=== PATIENT | female | born 1990 | race Caucasian/White ===

== ENCOUNTER 2016-08-16 16:05 | Emergency (ER) | payer MEDICAID ==
[2016-08-16 16:30] VITALS: BP 128/76
--- OUTSIDE RECORDS SUMMARY | 2016-08-16 17:17 | XMS REPORT | Continuity of Care Document ---
:1990 Author Organization [facility] ([facility]) Address [place] [address] Phone [phone] Care Team Providers Name Role Phone Narciso Phillips Primary Care Provider [phone] Source Comments This disclosure is being made pursuant to the Care Everywhere program, applicable federal and state laws, and may not contain all informaitonavailable regarding this patient.[facility] ([facility]) Active Allergies and Adverse Reactions Allergen Noted Date Severity Reactions Comments Guaifenesin 08/23/2013 Rash Penicillins 08/09/2013 Urticaria (Hives) Current Medications Prescription Sig. Disp. Refills Start Date End Date Status nicotine 7 mg/24 hr apply 1 Patch on the 28 Patch 3 08/09/2013 Active patch skin daily. Indications: SMOKING CESSATION Take 1 Tab by mouth Active multivitamin with daily. Indications: minerals 28-0.8 mg per tablet ranitidine 150 mg Take 150 mg by mouth Active tablet 2 times daily. Indications: HEARTBURN insulin lispro inject 4 Units 10 mL 11 09/08/2013 Active (HumaLOG) 100 subcutaneously 3 unit/mL injection times daily before vial meals. Indications: TYPE 1 DIABETES MELLITUS insulin glargine inject 11 Units 10 mL 11 09/08/2013 Active (LanTUS) 100 unit/mL subcutaneously at injection vial bedtime. Indications: TYPE 1 DIABETES MELLITUS docusate 100 mg Take 1 Cap by mouth 2 30 Cap 3 09/08/2013 Active capsule times daily as needed. Indications: CONSTIPATION ibuprofen 600 mg Take 1 Tab by mouth 30 Tab 3 09/08/2013 Active tablet every 6 hours as needed. Indications: PAIN Active Problems Problem Noted Date Type 1 diabetes mellitus complicating , antepartum 08/09/2013 Tobacco smoking complicating in third trimester 08/09/2013 Immunizations Name Dates Previously Given Next Due Tdap 08/09/2013 Social History Tobacco Use Types Packs/Day Years Used Date Current Every Day Smoker Cigarettes 0.5 7 Smokeless Tobacco: Never Used Alcohol Use Drinks/Week oz/Week Comments Yes 1 Standard drinks or equivalent 0.5 not with Last Filed Vital Signs Vital Sign Reading Time Taken Blood Pressure 110/64 10/20/2013 10:11 AM CDT Pulse 72 10/20/2013 10:11 AM CDT Temperature 36.3 C (97.3 F) 09/08/2013 8:53 AM CDT Respiratory Rate 20 09/07/2013 8:40 AM CDT Height 1.626 m (5' 4.02") 10/20/2013 10:11 AM CDT Weight 64.5 kg (142 lb 3.2 oz) 10/20/2013 10:11 AM CDT Body Mass Index 24.4 10/20/2013 10:11 AM CDT Oxygen Saturation 100% 09/06/2013 8:15 AM CDT Plan of Care Health Maintenance Due Date Last Done Comments Hepatitis B Vaccine (1 of 3 - Primary Series) 1991 HPV Vaccine (1 of 3 - Female/Unknown 3 Dose Series) 2002 Cervical Cancer Screening 2009 Lipid Disorder Screening 2009 MMR Vaccine 2009 Pneumococcal Vaccine (1 of 1 - PPSV23) 2010 Influenza Vaccine: Seasonal (#1) 10/22/2015 Td Vaccine 08/10/2023 08/09/2013 Tdap Vaccine Completed 08/09/2013 Results from Last 3 Months Not on file
[2016-08-16] MEDS ORDERED: INSULIN LISPRO 100 UNITS/ML VIAL SC ONE (17:39)
--- NOTE | 2016-08-16 17:41 | ERNOTE ---
Medical Problem HPI - Narrative Date of Service: 08/16/16 - General Chief Complaint: General Assessment Time Seen by Provider: 08/16/16 16:59 Source: patient Exam Limitations: no limitations - Immun/Allergies/Home Medications Immunizations: IMMUNIZATION HX Immunizations Up to Date Yes History of Influenza Vaccine No Hx Pneumococcal Vaccination No Allergies/Adverse Reactions: Allergies guaifenesin [From Mucinex] Allergy (Verified 08/16/16 16:31) mometasone furoate [From Nasonex] Allergy (Verified 08/16/16 16:31) Penicillins Allergy (Verified 08/16/16 16:31) Home Medications: HOME MEDICATIONS Insulin Glargine,Hum.rec.anlog [Lantus] 10 unit SQ HS 02/15/13 [Last Taken Unknown] Insulin Lispro [Humalog] 0 - 20 units SQ ACHS 04/25/14 [Last Taken Unknown] - History of Present History Narrative: Pt. comes in with c/o not being able to refill her insulin. Pt. has been an insulin dependent diabetic for over five years and went to refill her prescription today and was told that her insulin would not be paid for by her insurance. Pt. denies any complications of her DM and states taht her blood glucoses are ranging between 90-200 on her SSI. Review of Systems - Review of Systems Constitutional: Present: no symptoms reported. Absent: recent illness, fever, chills, weakness, fatigue, malaise EYE: Present: no symptoms reported ENT: Present: no symptoms reported Respiratory: Present: no symptoms reported. Absent: shortness of breath, cough , wheezing Cardiology: Present: no symptoms reported. Absent: chest pain, palpitations, edema Gastrointestinal/Abdominal: Present: no symptoms reported. Absent: nausea, vomiting, diarrhea, abdominal pain Genitourinary: Present: no symptoms reported Musculoskeletal: Present: no symptoms reported. Absent: back pain, joint pain Skin: Present: no symptoms reported. Absent: rash, change in hair/nails Neurological: Present: no symptoms reported. Absent: headache, dizziness/light- headedness, numbness, tingling Endocrine: Present: no symptoms reported. Absent: intolerance to cold, increased hunger, increased urine, unexplained weight gain, unexplained weight loss All Other Systems: All systems neg except as marked - Patient's Past Medical History Patient History - Medical: Diabetes Type 2 Insulin Dependent Patient History - Cardiac/Respiratory: No pertinent hx Patient History - Cancer: No Hx of Cancer Patient History - Surgical Procedures: T & A, Other Patient History - Other: None LMP (Calendar): 04/20/15 - Social History Living Situations: other Abuse History: No History of abuse Psych History: No pertinent hx Alcohol Use: rarely Drug Use: none - Immunizations Immunizations Up to Date: Yes Hx Pneumococcal Vaccination: No History of Influenza Vaccine: No Physical Exam - Physical Exam General Appearance: Present: wd/wn, alert, no apparent distress Eye Exam: Normal inspection: bilateral, PERRL: bilateral, EOMI: bilateral Ears, Nose, Throat: Present: normal ENT inspection, normal pharynx Neck: Present: normal inspection, nontender. Absent: lymphadenopathy (R), lymphadenopathy (L) Respiratory: Present: no respiratory distress, normal breath sounds, no accessory muscle use, chest nontender, lungs clear Cardiovascular/Chest: Present: regular rate, rhythm, no murmur, normal peripheral pulses Gastrointestinal/Abdominal: Present: normal bowel sounds, nontender, nondistended, soft, no organomegaly Back Exam: Present: normal inspection, normal range of motion, no CVA tenderness , no vertebral tenderness Extremity Exam: Present: normal inspection, non-tender, normal range of motion, no edema Neurological Exam: Present: alert, oriented, normal mood/affect, no motor/ sensory deficits, 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 Absent: pallor, skin rash ED Progress - Date and Time Seen: Date and Time: 08/16/16 18:21 Discussed with the pharmacist and if I were to write pt. new script she would be unable to get due to previous script without correct days of prescription but they can fix on Thursday. - Vital Signs Patient's Vital Signs:: I have reviewed the patient's vital signs. Vital Signs: Vital Signs 08/16/16 16:16 Temperature 35 C L Pulse Rate 76 Respiratory 12 Rate Blood Pressure 128/76 - Progress/Reassessment Chief Complaint: General Assessment Departure - Departure Clinical Impression: Insulin dependent diabetes mellitus Disposition: Home self-care Condition: Good Instructions: Insulin Treatment for Diabetes Additional Instructions: Please follow up with primary provider in 2-3 days. Referrals: Vasiliy Arellano MD [Primary Care Provider] -
[2016-08-16] MEDS ORDERED: INSULIN LISPRO 100 UNITS/ML VIAL ONE (17:49)
== END 2016-08-16 17:58 | disposition home or self-care (01) ==
LOC: ER 16:05
DX: E11.9 Type 2 diabetes mellitus without complications (principal); Z79.4 Long term (current) use of insulin

== ENCOUNTER 2017-04-07 13:59 | Observation (INO) | payer MEDICAID ==
[2017-04-07 14:32] LABS: Hematocrit 48.7 % (37.0-47.0); Hemoglobin 16.8 gm/dL (12.5-16.0); Mean Cell Volume 88.7 fl (78-100); Mean Corpuscular Hemoglobin 30.6 pg (27-31); Mean Corpuscular Hgb Conc 34.5 g/dl (32-36); Platelet Count 257 K/mm3 (150-450); Red Blood Count 5.49 M/mm3 (4.2-5.4); Red Cell Distribution Width 13.4 % (11.5-14.0); White Blood Count 7.8 K/mm3 (4.0-10.5)
[2017-04-07 14:44] LABS: ALT 91 U/L (19-67); AST 80 U/L (0-48); Albumin * 3.9 gm/dl (3.4-5.0); Alkaline Phosphatase * 200 U/L (50-170); Anion Gap 23.2 mmol/L (6.8-13.8); BUN/Creatinine Ratio 10.2 (9.0-21.6); Bilirubin, Total 1.2 mg/dL (0.0-1.1); Blood Urea Nitrogen 10 mg/dL (3-23); Calcium * 9.2 mg/dL (7.9-10.9); Carbon Dioxide 17.8 mmol/L (24-32.6); Chloride 91 mmol/L (97-106); Glucose * 292 mg/dL (70-110); Sodium 127 mmol/L (132-142); Total Protein 8.6 gm/dL (6.2-8.2)
[2017-04-07 14:52] LABS: Hemoglobin A1C 8.4 % (4.00-6.0)
[2017-04-07 14:53] LABS: Total Cells Counted 100
[2017-04-07 14:55] LABS: Urine Bilirubin 1 mg/dl (NEGATIVE); Urine Blood Negative /ul (NEGATIVE); Urine Ketone Large mg/dL (NEGATIVE); Urine Nitrite Negative (NEGATIVE); Urine Protein Negative (NEGATIVE); Urine Urobilinogen Normal (NORMAL); Urine pH 5.5 pH (5.0-7.0)
[2017-04-07 15:04] LABS: Atypical (Reactive) Lymph 9 % (0-2); Lymphocyte 37 % (20-51); Monocyte 5 % (0-9); Neutrophil 49 % (42-75); Neutrophil # 3.8 K/mm3 (1.3-6.0); Platelet Estimate Normal (NORMAL); RBC Morphology Normal (NORMAL)
[2017-04-07 15:12] LABS: Urine Appearance Clear; Urine Bacteria None Seen; Urine Color Yellow; Urine RBC None Seen /hpf (0-5); Urine WBC None Seen /hpf (0-5)
[2017-04-07] MEDS ORDERED: INSULIN REGULAR, HUMAN 100 UNITS/ML VIAL IV ONE (15:17)
[2017-04-07] MEDS ORDERED: NORMAL SALINE 1,000 ML IV ONE (15:17)
[2017-04-07] MEDS ORDERED: INSULIN REGULAR, HUMAN 100 UNITS/ML VIAL ONE (15:20)
[2017-04-07 16:39] LABS: BNP * 60 pg/mL (5-150); Troponin I Less than 0.017 ng/ml (0.00-0.10)
--- NOTE | 2017-04-07 16:57 | ERNOTE ---
Medical Problem HPI - Narrative Date of Service: 04/07/17 - General Chief Complaint: Diabetes Related Problem Time Seen by Provider: 04/07/17 14:11 Source: patient, RN notes reviewed, old records Exam Limitations: no limitations - Immun/Allergies/Home Medications Immunizations: IMMUNIZATION HX Immunizations Up to Date Yes History of Influenza Vaccine No Hx Pneumococcal Vaccination No Allergies/Adverse Reactions: Allergies guaifenesin [From Mucinex] Allergy (Verified 04/07/17 14:30) mometasone furoate [From Nasonex] Allergy (Verified 04/07/17 14:30) Penicillins Allergy (Verified 04/07/17 14:30) Home Medications: HOME MEDICATIONS Insulin Glargine,Hum.rec.anlog [Lantus] 40 unit SQ BID 02/15/13 [Last Taken Unknown] Insulin Lispro [Humalog] 0 - 20 units SQ ACHS 04/25/14 [Last Taken Unknown] - History of Present History Narrative: Iraida is a 27 year old female patient of Dr. Mcpherson who presents to the ED from home for possible DKA. She reports being tired and generally not feeling well all day today. She checked her urine at home and it was positive for ketones despite her blood glucose only being in the 200's. She denies any fever or chills. Date (Duration): 04/07/17 Review of Systems - Review of Systems Constitutional: Present: fatigue, malaise. Absent: fever, chills, weight loss EYE: Absent: eye pain, eye discharge ENT: Absent: ear pain, nose congestion, sore throat Respiratory: Absent: shortness of breath, cough Cardiology: Absent: chest pain, syncope Gastrointestinal/Abdominal: Present: nausea. Absent: vomiting, diarrhea, abdominal pain Genitourinary: Absent: dysuria, hematuria Musculoskeletal: Absent: muscle pain, joint pain Skin: Absent: rash, lesions Neurological: Absent: headache, dizziness/light-headedness Endocrine: Present: no symptoms reported Hematologic/Lymphatic: Absent: easy bruising, easy bleeding Psych: Present: no symptoms reported - Patient's Past Medical History Patient History - Medical: Diabetes Type 1, Depression, GERD Patient History - Cardiac/Respiratory: Asthma, Hyperlipidemia Patient History - Cancer: No Hx of Cancer Patient History - Surgical Procedures: T & A, Orthopedic Patient History - Other: None LMP (females 10-50): last week - Social History Living Situations: home Abuse History: No History of abuse Psych History: No pertinent hx Smoking Status: Current every day smoker Have you smoked in the past 12 months: Yes Do you dip or chew tobacco: No Alcohol Use: occasionally Drug Use: none - Immunizations Immunizations Up to Date: Yes Hx Pneumococcal Vaccination: No History of Influenza Vaccine: No Physical Exam - Physical Exam General Appearance: Present: wd/wn, alert, no apparent distress Head Exam: Present: normal inspection Eye Exam: Normal inspection: bilateral Ears, Nose, Throat: Present: normal ENT inspection, normal pharynx Neck: Present: normal inspection, nontender, supple, full range of motion Respiratory: Present: no respiratory distress, normal breath sounds, no accessory muscle use, lungs clear Cardiovascular/Chest: Present: regular rate, rhythm, no murmur, normal peripheral pulses Gastrointestinal/Abdominal: Present: normal bowel sounds, nontender, nondistended, soft, no organomegaly Extremity Exam: Present: normal inspection, normal range of motion, no edema Neurological Exam: Present: alert, oriented, normal mood/affect, no motor/ sensory deficits Skin Exam: Present: warm/dry, other - Face flushed ED Progress - Results and Orders Patient's Lab Results:: I have reviewed the patient's lab results. - Vital Signs Patient's Vital Signs:: I have reviewed the patient's vital signs. Vital Signs: Vital Signs 04/07/17 04/07/17 04/07/17 14:04 14:30 15:15 Temperature 36.6 C 36.6 C Pulse Rate 123 H 107 H 100 Respiratory 18 18 16 Rate Blood Pressure 138/86 122/79 129/80 O2 Sat by Pulse 98 98 100 Oximetry 04/07/17 04/07/17 15:30 16:00 Temperature 36.6 C Pulse Rate 100 97 Respiratory 16 16 Rate Blood Pressure 136/73 130/77 O2 Sat by Pulse 100 100 Oximetry - EKG EKG: NSR EKG read: Reviewed by me - X-Ray X-Ray #1 X-Ray: chest Interpretation: Reviewed by me X-ray Comments: No acute cardiopulmonary process identified - Progress/Reassessment Chief Complaint: Diabetes Related Problem Progress:: Improved Progress Note-Subjective: 04/07/17 16:54 Blood glucose 220 after 10 units of regular insulin IV at 1600. Rechecked just now and reading is 128. She has had [address] Sahni here to see patient. Will be admitted to observation status. Departure Clinical Impression: Diabetic ketoacidosis Qualifiers: Diabetes mellitus type: type 1 Diabetes mellitus complication detail: without coma Qualified Code(s): E10.10 - Type 1 diabetes mellitus with ketoacidosis without coma - Departure Disposition: [facility] Condition: Fair
[2017-04-07] MEDS ORDERED: NORMAL SALINE 1,000 ML IV PRN (17:06)
[2017-04-07 17:42] LABS: Cocaine Ur Negative (NEGATIVE); Urine Barbiturate Negative (NEGATIVE); Urine Benzodiazepines Negative (NEGATIVE); Urine Opiates Negative (NEGATIVE); Urine PCP Negative (NEGATIVE); Urine THC Negative (NEGATIVE)
--- NOTE | 2017-04-07 18:53 | PN ---
Antonette Note - Interim Narrative: ADMISSION NOTE: Patient seen and examined in the ER approximately 1700 hrs. Patient is a 27-year-WF with a history of T1DM, HLD, nicotine abuse who came into the ER for evaluation of decreased oral intake, generalized malaise, fatigue and testing positive for ketones on urine analysis at home in a.m. in the ER she was found to have urine and serum ketones, HCO3 17.8, Na+ 127, Cl- 91. Patient had mildly abnormal LFTs. Her previous DKA was 3 years ago. Patient was given 10 units of regular insulin IV which dropped her sugar down into the mid 100s She was given a liter of IV normal saline, she will be started on D5NS at 175 mL an hour; insulin drip at 0.5 units an hour when her sugar gets to 250 mg/dL in order to correct her ketosis first and not her blood sugars. Complete H&P done to be by MANAGER [facility]ONT[hospitalist].
[2017-04-07] MEDS: DEXTROSE 5%-NORMAL SALINE 1,000 ML IV PRN (20:28)
[2017-04-07] MEDS ORDERED: ONDANSETRON HCL/PF 2 MG/ML VIAL IV PRN (21:04)
--- NOTE | 2017-04-07 21:12 | HP ---
Chief Complaint - Chief Complaint Date of Service: 04/07/17 Time of Service: 20:40 Chief Complaint: DKA History of Present Illness: 27 years old white female adm to the hospital from ER with reports of nausea, abdominal discomfort and tested positive for ketones on urine while at home this morning. PMH significant for Type 1 diabetes, had DKA 3 yrs ago, GERD and hyperlipidemia. Pt stated she wasn't feeling well today, she felt really nauseated but no emesis. Pt stated she have very poor oral intake over the past few days, her diet isn't the best and dealing with alot of family stress. She had checked her urine for ketones while at home and it was elevated so she came to the ER. In ER Venous PH 7.2, Hco3 17.8, Cl 91,Anion gap 23.2, A1c 8.4, K+ 5.0 , Na+127. Serum and urine positive for ketones, serum BG 292 she was given Humulin R 10 units and it drops BG 266---220-->128--138---122. Initiated D5 0.9 250ml/hr to correct Ketoacidosis and bring the glucose up. Prior aggressive hydration with 2 L normal saline was given. When BG >200 anticipate starting insulin drip.Plan of care discussed with pt she verbalized understanding and agrees. - Patient's Past Medical History Patient History - Medical: Diabetes Type 1 - DKA 4 yrs ago, Depression, GERD Patient History - Cardiac/Respiratory: Hyperlipidemia Patient History - Cancer: No Hx of Cancer Patient History - Surgical Procedures: T & A, Other - Tonsillectomy, Orthopedic - Left knee arthroscopy Patient History - Other: None LMP (females 10-50): last week - Family History Mother Family History - Medical: Family History - Cardiac/Respiratory: Aneurysm Father Family History - Medical: No pertinent hx - Social History Living Situations: significant other Abuse History: No History of abuse Psych History: Hx of Depression Smoking Status: Current every day smoker Cigarettes Packs Per Day: 1 Have you smoked in the past 12 months: Yes Do you dip or chew tobacco: No Patient requests Smoking Cessation Consult: No Initiate information on Smoking Cessation: Yes Alcohol Use: occasionally Drug Use: none - Immunizations Immunizations Up to Date: Yes Hx Pneumococcal Vaccination: No History of Influenza Vaccine: No Review Of Systems (GEN) - Review of Systems Generalized/Overall Review: Present: No Symptoms Reported EENTM: Present: No Symptoms Reported Respiratory: Present: No Symptoms Reported Cardiac: Present: No Symptoms Reported Abdominal: Present: Nausea Genitourinary: Present: No Symptoms Reported Musculoskeletal: Present: No Symptoms Reported Neurological: Present: No Symptoms Reported Skin: Present: No Symptoms Reported Endocrine: Present: No Symptoms Reported Immunizations: IMMUNIZATION HX Immunizations Up to Date Yes History of Influenza Vaccine No Hx Pneumococcal Vaccination No Allergies/Adverse Reactions: Allergies Allergy/AdvReac Type Severity Reaction Status Date / Time guaifenesin [From Mucinex] Allergy Verified 04/07/17 14:30 mometasone furoate Allergy Verified 04/07/17 14:30 [From Nasonex] Penicillins Allergy Verified 04/07/17 14:30 Home Medications: HOME MEDICATIONS Insulin Glargine,Hum.rec.anlog [Lantus] 40 unit SQ BID 02/15/13 [Last Taken Unknown] Insulin Lispro [Humalog] 0 - 20 units SQ ACHS 04/25/14 [Last Taken Unknown] Exam - Exam Vital Signs: Vital Signs - Last Taken Temp 36.9 C 04/07/17 18:50 Pulse 86 04/07/17 18:50 Resp 16 04/07/17 18:50 BP 138/82 04/07/17 18:50 Pulse Ox 99 04/07/17 18:50 Constitutional: Present: Alert, Oriented x3, Cooperative, Well developed, No distress, Young ENT Exam: Present: hearing grossly normal Eye Exam: bilateral eye: normal inspection Neck: Present: full range of motion Back Exam: Present: normal inspection, no CVA tenderness Breasts: Present: Exam deferred Respiratory: Present: chest non-tender, lungs clear, normal breath sounds, no respiratory distress, decreased breath sounds Cardiovascular/Chest: Present: normal peripheral pulses, regular rate, rhythm, no chest tenderness, no edema Peripheral Pulses: dorsalis-pedis (R): 3+, dorsalis-pedis (L): 3+ Abdomen: Present: Normal bowel sounds, soft, nontender, nondistended, no rebound tenderness /Rectal: Present: Exam deferred Extremity: Present: normal range of motion, non-tender, normal inspection, no pedal edema Skin Exam: Present: normal color, warm/dry Neurologic: Present: oriented x 3 Appearance: Present: appropriate appearance, appropriate insight Eye contact: Present: cooperative, good eye contact Thoughts: Present: normal thought pattern Diagnostic Studies: Laboratory Results WBC 7.8 K/mm3 (4.0-10.5) 04/07/17 14:24 RBC 5.49 M/mm3 (4.2-5.4) H 04/07/17 14:24 Hgb 16.8 gm/dL (12.5-16.0) H 04/07/17 14:24 Hct 48.7 % (37.0-47.0) H 04/07/17 14:24 MCV 88.7 fl (78-100) 04/07/17 14:24 MCH 30.6 pg (27-31) 04/07/17 14:24 MCHC 34.5 g/dl (32-36) 04/07/17 14:24 RDW 13.4 % (11.5-14.0) 04/07/17 14:24 Plt Count 257 K/mm3 (150-450) 04/07/17 14:24 MPV 10.0 fl (6.0-9.5) H 04/07/17 14:24 Neutrophils % (Manual) 49 % (42-75) 04/07/17 14:24 Lymphocytes % (Manual) 37 % (20-51) 04/07/17 14:24 Monocytes % (Manual) 5 % (0-9) 04/07/17 14:24 Neutrophils # (Manual) 3.8 K/mm3 (1.3-6.0) 04/07/17 14:24 Lymphocytes # (Manual) 2.9 k/mm3 (1.5-3.5) 04/07/17 14:24 Monocytes # (Manual) 0.4 k/mm3 (0.0-1.0) 04/07/17 14:24 Atypic/Reactive Lymphs 9 % (0-2) H 04/07/17 14:24 Platelet Estimate Normal (NORMAL) 04/07/17 14:24 RBC Morphology Normal (NORMAL) 04/07/17 14:24 VBG pH 7.227 (7.32-7.43) L 04/07/17 14:22 Sodium 127 mmol/L (132-142) L 04/07/17 14:24 Plasma Sodium 130 mmol/L (130-142) 04/07/17 14:24 Potassium 5.0 mmol/L (3.4-4.6) H D 04/07/17 14:24 Chloride 91 mmol/L (97-106) L 04/07/17 14:24 Carbon Dioxide 17.8 mmol/L (24-32.6) L 04/07/17 14:24 Anion Gap 23.2 mmol/L (6.8-13.8) H 04/07/17 14:24 BUN 10 mg/dL (3-23) 04/07/17 14:24 Creatinine 0.98 mg/dL (0.4-1.4) 04/07/17 14:24 Est GFR (Non-Af Amer) 73 mL/min (60-130) D 04/07/17 14:24 BUN/Creatinine Ratio 10.2 (9.0-21.6) 04/07/17 14:24 Random Glucose 292 mg/dL (70-110) H 04/07/17 14:24 Mean Blood Glucose 194 mg/dL 04/07/17 14:24 Hemoglobin A1c 8.4 % (4.00-6.0) H 04/07/17 14:24 Calcium 9.2 mg/dL (7.9-10.9) 04/07/17 14:24 Calcium Adj for Albumin 9.0 mg/dL (8.4-10.2) 04/07/17 14:24 Total Bilirubin 1.2 mg/dL (0.0-1.1) H 04/07/17 14:24 AST 80 U/L (0-48) H 04/07/17 14:24 ALT 91 U/L (19-67) H 04/07/17 14:24 Alkaline Phosphatase 200 U/L (50-170) H 04/07/17 14:24 Troponin I Less than 0.017 ng/ml (0.00-0.10) 04/07/17 14:24 B-Natriuretic Peptide 60 pg/mL (5-150) 04/07/17 14:24 Total Protein 8.6 gm/dL (6.2-8.2) H 04/07/17 14:24 Albumin 3.9 gm/dl (3.4-5.0) 04/07/17 14:24 Serum HCG, Qual Negative (NEGATIVE) 04/07/17 14:24 Urine Color Yellow 04/07/17 14:20 Urine Appearance Clear 04/07/17 14:20 Urine pH 5.5 pH (5.0-7.0) 04/07/17 14:20 Ur Specific [facility] 1.020 SP.GR. (1.005-1.010) 04/07/17 14:20 Urine Protein Negative mg/dL (NEGATIVE) 04/07/17 14:20 Urine Glucose (UA) >=1000 mg/dL (NEGATIVE) H 04/07/17 14:20 Urine Ketones Large mg/dL (NEGATIVE) 04/07/17 14:20 Urine Blood Negative /ul (NEGATIVE) 04/07/17 14:20 Urine Nitrate Negative (NEGATIVE) 04/07/17 14:20 Urine Bilirubin 1 mg/dl (NEGATIVE) H 04/07/17 14:20 Urine Ictotest Negative (NEGATIVE) 04/07/17 14:20 Urine Urobilinogen Normal EU/dl (NORMAL) 04/07/17 14:20 Ur Leukocyte Esterase Negative /ul (NEGATIVE) 04/07/17 14:20 Urine RBC None seen /hpf (0-5) 04/07/17 14:20 Urine WBC None seen /hpf (0-5) 04/07/17 14:20 Ur Epithelial Cells Trace /hpf (0-5) 04/07/17 14:20 Urine Bacteria None seen (NONE) 04/07/17 14:20 Urine Culture Comments No culture indicated 04/07/17 14:20 Urine Opiates Screen Negative (NEGATIVE) 04/07/17 Unknown Barbiturate Screen Negative (NEGATIVE) 04/07/17 Unknown Ur Phencyclidine Scrn Negative (NEGATIVE) 04/07/17 Unknown Urine Amphetamine Negative (NEGATIVE) 04/07/17 Unknown U Benzodiazepines Scrn Negative (NEGATIVE) 04/07/17 Unknown Urine Cocaine Screen Negative (NEGATIVE) 04/07/17 Unknown Urine Marijuana (THC) Negative (NEGATIVE) 04/07/17 Unknown Serum Ketones Positive - 20mg/dl (NEGATIVE) H 04/07/17 14:24 Monoscreen Negative (NEGATIVE) 04/07/17 14:22 CXR: No acute cardiopulmonary process Assessment/Plan - Narrative Narrative: DKA On adm BG 292, serum ketones 20mg/dl, Venous PH 7.2, Anion gap 23.2, A1c 8.4, K + 5.0, Na+127 Aggressive 2L normal saline bolus given in ER In ER Humulin R 10 units given, BG drop 122mg/dl--> therefore give D5 0.9% 250ml /hr to bring up BG and correct ketoacidosis When blood Glucose >200 then initiate insulin drip 0.5units and titrate. Monitor BMP Q3hr. mag, phos Q6h Telemetry monitoring Metabolic Acidosis Venous PH 7.2 Plan same as #1 Substance abuse Smokes 1 pack cigarettes daily Nicotine patch Abnormal LFT On adm ALT/ AST--> 90/80 Monitor CMP in am Electrolytes imbalance On adm Na+ 127, K+ 5.0, Cl-91 Continue with IVF resuscitation Monitor CMP in AM Code status: Full VTE ppx: Ambulate GI ppx:Pepcid Time 35 minutes and will discussed case further with Dr Sahni - Assessment/Plan (1) Diabetic ketoacidosis Problem: Acute Qualifiers: Diabetes mellitus type: type 1 Diabetes mellitus complication detail: without coma Qualified Code(s): E10.10 - Type 1 diabetes mellitus with ketoacidosis without coma (2) GERD (gastroesophageal reflux disease) Problem: Chronic (3) Smoker Problem: Chronic (4) Metabolic acidosis Problem: Acute (5) Abnormal blood electrolyte level Problem: Acute
[2017-04-07] MEDS ORDERED: NICOTINE 21 MG PATC TD SCH (21:30)
[2017-04-07] MEDS ORDERED: FAMOTIDINE 20 MG in DEXTROSE 5 % IN WATER 100 ML IV ONE ×2 (22:09)
[2017-04-07] MEDS: INSULIN REGULAR HUMAN REC 100 UNITS in NORMAL SALINE 100 ML IV PRN (22:59)
[2017-04-07 23:57] LABS: Albumin * 2.8 gm/dl (3.4-5.0); Anion Gap 16.5 mmol/L (6.8-13.8); BUN/Creatinine Ratio 9.2 (9.0-21.6); Bilirubin, Total 0.7 mg/dL (0.0-1.1); Ca. Corrected For Albumin 8.6 mg/dL (8.4-10.2); Carbon Dioxide 18.6 mmol/L (24-32.6); Potassium 4.1 mmol/L (3.4-4.6); Total Protein 6.5 gm/dL (6.2-8.2)
[2017-04-08] MEDS: DEXTROSE 5%-NORMAL SALINE 1,000 ML IV PRN ×3 (00:53→08:59)
[2017-04-08 02:47] LABS: Anion Gap 13.2 mmol/L (6.8-13.8); BUN/Creatinine Ratio 8.9 (9.0-21.6); Carbon Dioxide 20.5 mmol/L (24-32.6); Estimated Creat Clear 93.2; Potassium 3.7 mmol/L (3.4-4.6)
[2017-04-08 06:01] LABS: Hematocrit 40.9 % (37.0-47.0); Hemoglobin 14.1 gm/dL (12.5-16.0); Mean Cell Volume 87.6 fl (78-100); Mean Corpuscular Hemoglobin 30.2 pg (27-31); Mean Corpuscular Hgb Conc 34.5 g/dl (32-36); Mean Platelet Volume 9.8 fl (6.0-9.5); Platelet Count 192 K/mm3 (150-450); Red Blood Count 4.67 M/mm3 (4.2-5.4); Red Cell Distribution Width 13.5 % (11.5-14.0); White Blood Count 5.7 K/mm3 (4.0-10.5)
[2017-04-08 06:04] LABS: Total Cells Counted 100
[2017-04-08] MEDS ORDERED: ACETAMINOPHEN 500 MG TABLET PO ONE (06:15)
[2017-04-08 06:45] LABS: Albumin * 2.6 gm/dl (3.4-5.0); Anion Gap 15.9 mmol/L (6.8-13.8); Bilirubin, Total 0.4 mg/dL (0.0-1.1); Ca. Corrected For Albumin 8.4 mg/dL (8.4-10.2); Calcium * 7.6 mg/dL (7.9-10.9); Carbon Dioxide 19.5 mmol/L (24-32.6); Magnesium 1.6 mg/dL (1.2-2.8); Phosphorus 2.6 mg/dL (2.2-4.2); Potassium 3.4 mmol/L (3.4-4.6); Total Protein 5.8 gm/dL (6.2-8.2)
[2017-04-08 06:47] LABS: Atypical (Reactive) Lymph 13 % (0-2); Eosinophil 1 % (0-3); Lymphocyte 52 % (20-51); Monocyte 9 % (0-9); Neutrophil 25 % (42-75); Neutrophil # 1.4 K/mm3 (1.3-6.0); Platelet Estimate Normal (NORMAL); RBC Morphology Normal (NORMAL)
--- NOTE | 2017-04-08 07:00 | PN ---
Subjective - Date and Time Seen Date: 04/08/17 Time: 06:37 Subjective Narrative: patient seen this morning with report of headache and feeling hungry.She denies nausea and anticipating discharge home later today. Objective - Review of Systems Generalized/Overall Review: Reports: No Symptoms Reported EENTM: Reports: No Symptoms Reported Respiratory: Reports: No Symptoms Reported Cardiac: Reports: No Symptoms Reported Abdominal: Reports: No Symptoms Reported Genitourinary Symptoms: Reports: No Symptoms Reported Musculoskeletal Complaints: Reports: No Symptoms Reported Neurological: Reports: No Symptoms Reported Skin: Reports: No Symptoms Reported Endocrine: Reports: No Symptoms Reported - Vitals Vitals: Last Vital Signs Temp 36.4 C L 04/08/17 00:16 Pulse 81 04/08/17 00:16 Resp 16 04/08/17 00:16 BP 119/69 04/08/17 00:16 Pulse Ox 98 04/08/17 00:16 - Abnormal Lab Findings Abnormal Lab Findings: Abnormal Lab Results 04/07/17 04/08/17 04/08/17 Range/Units 23:45 02:30 05:56 MPV 9.8 H (6.0-9.5) fl Carbon Dioxide 18.6 L 20.5 L (24-32.6) mmol/L Anion Gap 16.5 H (6.8-13.8) mmol/L BUN/Creatinine Ratio 8.9 L (9.0-21.6) Random Glucose 291 H 289 H (70-110) mg/dL AST 56 H (0-48) U/L ALT 68 H (19-67) U/L Albumin 2.8 L (3.4-5.0) gm/dl - Exam Constitutional: Present: Alert, Oriented x3, Cooperative, Well developed, No distress, Young ENT Exam: Present: hearing grossly normal Neck: Present: full range of motion Respiratory: Present: chest non-tender, lungs clear, normal breath sounds, no respiratory distress Cardiovascular/Chest: Present: normal peripheral pulses, regular rate, rhythm, no chest tenderness, no edema Abdomen: Present: Normal bowel sounds, soft, nontender /Rectal: Present: Exam deferred Extremity: Present: normal range of motion, non-tender, normal inspection, no pedal edema Skin Exam: Present: normal color Neurologic: Present: oriented x 3 Appearance: Present: appropriate appearance Eye contact: Present: cooperative, good eye contact Thoughts: Present: normal thought pattern, no apparent hallucination Assessment/Plan Plan Narrative: DKA- gradually improving On adm BG 292, serum ketones 20mg/dl, Venous PH 7.2, Anion gap 23.2, A1c 8.4, K + 5.0, Na+127 Aggressive 2L normal saline bolus given in ER In ER Humulin R 10 units given, BG drop 122mg/dl--> therefore give D5 0.9% 250ml /hr to bring up BG and correct ketoacidosis When blood Glucose >200 then initiate insulin drip 0.5units and titrate. Mag, phos pending 04/08/17 Hco3 20.5, anion gap 13.2 BG 274mg/dl will repeat BMP Metabolic Acidosis- Improving Venous PH 7.2 Plan same as #1 Substance abuse Smokes 1 pack cigarettes daily Nicotine patch Abnormal LFT gradually improving On adm ALT/ AST--> 90/80 Monitor CMP in am Electrolytes imbalance- resolved On adm Na+ 127, K+ 5.0, Cl-91 Continue with IVF resuscitation Monitor CMP in AM Code status: Full VTE ppx: Ambulate GI ppx:Pepcid Time 20 minutes case discussed with Dr Sahni - Problems/Diagnosis (1) Diabetic ketoacidosis Problem: Acute Qualifiers: Diabetes mellitus type: type 1 Diabetes mellitus complication detail: without coma Qualified Code(s): E10.10 - Type 1 diabetes mellitus with ketoacidosis without coma (2) GERD (gastroesophageal reflux disease) Problem: Chronic (3) Smoker Problem: Chronic (4) Metabolic acidosis Problem: Acute (5) Abnormal blood electrolyte level Problem: Acute
[2017-04-08] MEDS: INSULIN REGULAR HUMAN REC 100 UNITS in NORMAL SALINE 100 ML IV PRN (08:57)
[2017-04-08] MEDS ORDERED: INSULIN GLARGINE,HUM.REC.ANLOG 100 UNITS/ML VIAL SC ONE (10:04)
[2017-04-08] MEDS ORDERED: POTASSIUM CHLORIDE 20 MEQ TABLET.SA PO SCH (10:15)
[2017-04-08] MEDS: INSULIN LISPRO 100 UNITS/ML VIAL SC SCH ×2 (10:32→12:12)
[2017-04-08] MEDS ORDERED: INSULIN LISPRO 100 UNITS/ML VIAL SC SCH (12:00)
[2017-04-08 14:48] VITALS: BP 146/92
--- NOTE | 2017-04-08 15:31 | DS ---
(1) Diabetic ketoacidosis Problem: Acute Qualifiers: Diabetes mellitus type: type 1 Diabetes mellitus complication detail: without coma Qualified Code(s): E10.10 - Type 1 diabetes mellitus with ketoacidosis without coma (2) Nicotine abuse Problem: Chronic (3) HLD (hyperlipidemia) Problem: Chronic Qualifiers: Hyperlipidemia type: unspecified Qualified Code(s): E78.5 - Hyperlipidemia , unspecified Description of Stay: DATE OF ADMISSION: 04/07/17. DATE OF DISCHARGE: 04/08/17. DIAGNOSTICS: NONE. DISCHARGE SUMMARY: Iraida Luu is a 27-year-old WF with a history of T1 DM, HLD, nicotine abuse who came into the ER for evaluation of decreased oral intake, generalized malaise, fatigue and testing positive for urine ketones early in the morning. She denies any URI/ UTI symptoms. Significant labs on admission included HCO3 17.8, Na+ 127, Cl- 91, AST/ALT 80/91. CXR was negative for an infiltrate. UA was negative for any infection and drug screen was negative. [place] test was negative. Urine and serum ketones were positive. The patient initially was treated with IV fluids in the form of normal saline and was given regular insulin IV in the ER. She was then started on an insulin drip per protocol. Her ketosis resolved by morning. She was also seen by the dietitian. Nausea was controlled by ondansetron 4 mg IV as needed. Patient currently is not interested in quitting smoking. Patient states that she has several hypoglycemic episodes in the evenings and nights. She was advised to take a high protein snack at bedtime; her Lantus was decreased from 40 units twice a day to 35 units twice a day. Humalog 5 units 3 times a day with meals. Humalog was as follows: Below 100 mg/dL-no Humalog. Sliding scale: 100-150-5 units 151-200 mg/dL-add 2 units; 201-250 mg/dl- add 4 units; 251-300 mg/dL-add 6 units; 301-350 mg/dl-add 8 units; 351-400 mg/dl-add 12 units. Patient was encouraged to quit smoking. She she'll be referred to endocrinology to achieve a better control. She is being discharged in a stable condition. A total of 35 minutes was spent with the patient discussing plan of care; discharge plans, reconciliation of meds reparation and dictating discharge summary. Procedures Performed: none Results and Findings: Laboratory Tests 04/07/17 04/08/17 14:24 05:56 WBC 7.8 5.7 D Hgb 16.8 H 14.1 Hct 48.7 H 40.9 Plt Count 257 192 04/07/17 04/08/17 14:24 02:30 Plasma Sodium 130 138 Potassium 5.0 H D 3.7 Chloride 91 L 105 Carbon Dioxide 17.8 L 20.5 L BUN 10 7 Creatinine 0.98 0.79 Est GFR (Non-Af Amer) 73 D 94 Random Glucose 292 H 289 H Calcium 8.0 Total Bilirubin 1.2 H AST 80 H ALT 91 H Alkaline Phosphatase 200 H Total Protein 8.6 H Albumin 3.9 11/23/14 05/07/15 09/18/15 10:03 10:56 15:21 Hemoglobin A1c 7.3 H 7.8 H 7.8 H 01/18/16 06/06/16 04/07/17 16:43 11:26 14:24 Hemoglobin A1c 8.2 H 9.1 H 8.4 H Discharge Disposition: Home self care Disposition: Home self-care Condition: Undetermined Discharge Activity: Activity as tolerated Discharge Diet: Consistent carbs, Low salt, Low fat/chol Referrals: Vasiliy Arellano MD [Primary Care Provider] - Problem Oriented Discharge Instructions to Patient/Family: Diabetic Ketoacidosis, Blood Glucose Monitoring, Adult, Diabetes Mellitus and Food Additional Patient Instructions (free text): Refer to endocrinology at [place] . Patient to take a log of BS with nicole appt. Please fax a list of A1c x 10 to their office and labs for x 2 years. QUIT SMOKING. Take high protein bedtime snack to prevent low BS in the middle of the night. Appt with PCP in 1-2 weeks one time follow up with on 04-15-17 @ 1: 30pm. Keep appointment with Vida on if he is back in office. Prescriptions (Any new or edited meds): Atorvastatin Calcium [Lipitor] 20 mg PO DAILY #30 tab Insulin Glargine,Hum.rec.anlog [Lantus] 35 unit SQ BID #1 vial Insulin Lispro [Humalog] 5 units SC ACINS #1 vial Insulin Lispro [Humalog] 0 - 12 units SQ AC #1 vial Complete Home Medications List: Complete Home Medication List: Atorvastatin Calcium [Lipitor] 20 mg PO DAILY #30 tab 04/08/17 Insulin Glargine,Hum.rec.anlog [Lantus] 35 unit SQ BID #1 vial 04/08/17 Insulin Lispro [Humalog] 0 - 12 units SQ AC #1 vial 04/08/17 Insulin Lispro [Humalog] 5 units SC ACINS #1 vial 04/08/17
== END 2017-04-08 17:00 | disposition home or self-care (01) ==
LOC: ER 13:59 → MS 16:48
PROVIDERS: ADMIT Internal Medicine; ATTEND Internal Medicine
DX: E10.10 Type 1 diabetes mellitus with ketoacidosis without coma (principal); Z68.29 Body mass index [BMI] 29.0-29.9, adult; F32.9 Major depressive disorder, single episode, unspecified; K21.9 Gastro-esophageal reflux disease without esophagitis; E78.5 Hyperlipidemia, unspecified; F17.210 Nicotine dependence, cigarettes, uncomplicated
CPT/HCPCS: 36415; 71046; 80048; 80053; 80307; 81001; 82009; 82800; 83036; 83735; 83880; 84100; 84484; 84703; 85007; 85025; 86308; 93005; 96365; 96366; 96367; 96372; 96375; 96376; 99285; G0378